=== PATIENT | male | born 1965 | race Caucasian/White ===

== ENCOUNTER 2018-04-24 22:55 | Emergency (ER) | payer BC, OTHER ==
[~2018-04-24] VITALS: Ht 175.3 cm; Wt 95.5 kg
[~2018-04-24 22:55] MED LIST: CELEXA; HYDROCHLOROTHIAZIDE; MERCAPTOPURINE; METH1TAB PO; MORPHINE SULFATE; REMICADE INFUSION; TEMAZEPAM; VICODIN; [UNRECOGNIZED DRUG - CODE]; [UNRECOGNIZED DRUG - OTHER]; [UNRECOGNIZED DRUG - OTHER]
[2018-04-24 23:02] VITALS: BP 121/73; PULSE 80; RESP 20; Ht 175.3 cm; Wt 95.5 kg
--- NOTE | 2018-04-25 02:00 | ERD ---
ER Documentation Chief Complaint Chief Complaint BILATERAL LEG PAIN X FRIDAY HPI 52-year-old male, with history of rectal surgery 1 week ago, presents to the emergency department, complaining of bilateral lower extremity pain for 4 days, associated with tingling. The patient was seen by his primary doctor and jeovany mmended to return to the emergency department for evaluation of possible DVT. The patient denies chest pain, no shortness of breath. ROS All systems reviewed and are negative except as per history of present illness. Medications Home Meds Reported Medications [Temazepam] No Conflict Check 12/15/13 [Pantosa] No Conflict Check 12/15/13 [Celexa] No Conflict Check 12/15/13 [Cardiosol] No Conflict Check 12/15/13 [Morphine Sulfate] No Conflict Check 12/15/13 [Vicodin] No Conflict Check 12/15/13 [Hydrochlorothiazide] No Conflict Check 12/15/13 [Paxitrate] No Conflict Check 12/15/13 Methenam/Me Blue/Ba/Salicy/Hyo (PROSED-DS TABLET) 1 Each Tablet, 1 EACH PO 12/15/13 [Mercaptopurine] No Conflict Check 12/15/13 [Remicade Infusion] No Conflict Check 12/15/13 Allergies Allergies: Coded Allergies: No Known Drug Allergy (Verified Allergy, Mild, 12/15/13) PMhx/Soc History of Surgery: Yes (RECTAL FISTULA AND COLON RESECTION) Anesthesia Reaction: No Hx Neurological Disorder: No Hx Respiratory Disorders: No Hx Cardiac Disorders: No Hx Psychiatric Problems: No Hx Miscellaneous Medical Probl: Yes Hx Alcohol Use: No Hx Substance Use: No Hx Tobacco Use: No Smoking Status: Never smoker FmHx Family History: No diabetes, No coronary disease Physical Exam Vitals Vital Signs Date Temp Pulse Resp B/P (MAP) Pulse Ox O2 O2 Flow FiO2 Time Delivery Rate 04/24/18 98.5 80 20 121/73 99 23:02 (89) Physical Exam Const: No acute distress Head: Atraumatic Eyes: Normal Conjunctiva ENT: Normal External Ears, Nose and Mouth. Neck: Full range of motion. No meningismus. Resp: Clear to auscultation bilaterally Cardio: Regular rate and rhythm, no murmurs Abd: Soft, non tender, non distended. Normal bowel sounds Skin: No petechiae or rashes Back: No midline or flank tenderness Ext: No cyanosis, or edema Neur: Awake and alert Psych: Normal Mood and Affect Departure Diagnosis: Primary Impression: Bilateral leg pain Condition: Stable Additional Instructions: Thank you very much for allowing us to participate in your care. Your health and safety is our top priority at [facility]. Call your primary care doctor TOMORROW for an appointment during the next 2-4 days and bring all the information and medications prescribed. Have prescriptions filled and follow precisely the directions on the label. If the symptoms get worse and your provider is unavailable, return to the Emergency Department immediately. TAWNYA CARMONA MD Apr 25, 2018 02:00
== END 2018-04-25 03:32 | disposition home or self-care (01) ==
LOC: FTE 22:55
DX: M79.604 Pain in right leg (principal); M79.605 Pain in left leg
CPT/HCPCS: 93970